=== PATIENT | female | born 1950 | race Caucasian/White ===

== ENCOUNTER 2022-05-02 19:08 | Inpatient (IN) ==
[2022-05-02] MEDS ORDERED: MoRPHine SULFATE 4 MG/ML 1 ML CARP\\VIAL IV PRN (19:22)
[2022-05-02] MEDS ORDERED: SODIUM CHLORIDE 0.9% 1000ML 1,000 ML IV STA (19:22)
[2022-05-02] MEDS ORDERED: ONDANSETRON INJ 2 MG/ML 2 ML VIAL IV STA (19:22)
--- NOTE | 2022-05-02 19:28 | Emergency Department Note ---
Impression & Plan Hydronephrosis of left kidney, Acute left flank pain, Hematuria ED Provider Note NAME: JUN PINK AGE: 72 SEX: F : 1950 ARRIVES VIA: Walk-In INFORMANT: Patient, ED PROVIDER(S): Mark Irby DO CHIEF COMPLAINT: Flank pain HPI: Patient is a 72-year-old female who presented to the emergency department for an evaluation of flank pain. The patient describes left-sided flank pain which began a few weeks ago. She has had episodes intermittently. She does have a history of kidney stones in the past. She has been able to pass kidney stones on her own without the need for stenting. The patient states that the pain returned over the last 24 hours and she was unable to relieve the pain. She has been taking her usual pain medication and other adsu-bmo-bdryyuz medications without relief. She describes very severe sharp pain on the left side. She denies having any rash. She denies having any chest pain or difficulty breathing. She has no lower extremity pain or swelling. The patient's not been seen by her primary care physician prior to coming to the emergency department. ROS: See above HPI for pertinent positives & negatives. A total of 10 systems reviewed and were otherwise negative. PAST MEDICAL HISTORY: See Below PAST SURGICAL HISTORY: See Below FAMILY HISTORY: See Below SOCIAL HISTORY: See Below HOME MEDICATIONS: See Below ALLERGIES: See Below VITALS: See Below PHYSICAL EXAMINATION: GENERAL: Patient is awake and alert. She is very anxious appearing and appears to be uncomfortable. EYES: The conjunctivae are clear. The pupils are round and reactive. EARS, NOSE, MOUTH AND THROAT: The nose is without any evidence of any deformity. NECK: The neck is nontender and supple. RESPIRATORY: Normal respiratory effort is noted there is no evidence of wheezing rhonchi or rales CARDIOVASCULAR: Regular rate and rhythm noted there no murmurs rubs or gallops normal S1 normal S2. GASTROINTESTINAL: The abdomen is soft. Abdomen is nontender. BACK: No midline tenderness or or step-off noted range of motion in flexion extension as well as rotation no signs of muscle spasm noted MUSCULOSKELETAL/EXTREMITIES: There is no evidence of gross deformity full range of motion is noted in the hips and shoulders. SKIN: There is no obvious evidence of any rash. There are no petechiae, pallor or cyanosis noted. NEUROLOGIC: Patient is awake alert and oriented x3 strength is symmetric p atellar reflexes are 2+ bilaterally MEDICAL DECISION MAKING: The patient is a 72-year-old female who presented to the emergency department for an evaluation of flank pain. She has a history of kidney stones in the past. She had very significant pain and was found to have severe hydronephrosis on the left kidney. There is no definite ureteral calculus. This could represent some scarring at the distal ureter. I discussed patient's laboratory and radiographic studies with her. I discussed her findings including the hematuria. It is possible this represents an underlying infection. Given the patient's degree of pain and her findings on CT I do feel she may require further inpatient management. For this reason the [facility] hospitalist was notified about the patient. Triage Nursing notes reviewed. Prior medical records reviewed Vital Signs: reviewed and remarkable for elevated blood pressure. Differential diagnosis: Renal colic, UTI, appendicitis, diverticulitis, mesenteric ischemia, aortic pathology, infections, inflammatory bowel disease, PUD, biliary pathology, as well as other pathologies. ER treatment provided: See below Diagnostics interpreted by me: ECG: none Cardiac Monitoring: An order was placed for continuous cardiac monitoring. The monitor shows a rate of 92 bpm with sinus rhythm. Laboratory studies: As stated above and show below. Imaging studies: See below. Radiographic imaging was reviewed by myself Consultation(s): Dr. Walters was notified about the patient. Past Med/Surg History Medical History Kidney stones Surgical History History of knee surgery Social History Smoking Status: Former smoker Feels Safe at Home: Yes Allergies Allergies Allergy/AdvReac Type Severity Reaction Status Date / Time animal dander Allergy Unknown Verified 05/02/22 22:57 mold Allergy Unknown Verified 05/02/22 22:57 pollen extracts Allergy hay fever Verified 05/02/22 22:57 amoxicillin AdvReac Unknown Verified 05/02/22 22:56 aspirin AdvReac Unknown Verified 05/02/22 22:56 atenolol AdvReac Unknown Verified 05/02/22 22:56 bethanechol [From Urecholine] AdvReac Unknown Verified 05/02/22 22:56 calcium AdvReac caused Verified 05/02/22 22:56 kidney stones cefuroxime AdvReac Unknown Verified 05/02/22 22:56 cephalexin AdvReac Unknown Verified 05/02/22 22:56 cortisone AdvReac Unknown Verified 05/02/22 22:56 ibuprofen AdvReac Unknown Verified 05/02/22 22:56 naproxen [From Aleve] AdvReac Unknown Verified 05/02/22 22:56 NSAIDS (Non-Steroidal AdvReac Unknown Verified 05/02/22 22:56 Anti-Inflamma topiramate [From Topamax] AdvReac Unknown Verified 05/02/22 22:56 dust Allergy Unknown Uncoded 05/02/22 22:57 Home Meds Home Medications Medication Instructions Recorded Confirmed multivitamin 1 tab PO QAM 05/02/22 05/02/22 Results & Data (ED) Vital Signs Vital Signs - 24 hr 05/02/22 19:10 05/03/22 00:34 Temperature 36.4 C L Temperature Source Temporal Artery Scan Pulse Rate 92 H 82 Respiratory Rate 18 14 Respiratory Effort / Characteristics Non-Labored Spontaneous Respiratory Depth Normal Blood Pressure 185/90 H Blood Pressure Mean 121 Pulse Oximetry 97 95 Oxygen Delivery Method Room Air Room Air Sepsis Recent Fever Within 48 Hours No Sepsis New/Unexplained Change in Mental Status No Sepsis Action Taken by Nursing No Action Required Home Medications Current Medication List: was personally reviewed by me Laboratory Data Attestation: I reviewed the patient's lab results. 05/02/22 19:36 05/02/22 19:36 Lab Results 05/02/22 05/02/22 05/02/22 Range/Units 19:36 19:36 19:36 WBC 14.53 H (4.8-10.8) K/ul RBC 4.38 (3.93-5.22) M/uL Hgb 13.4 (12.0-16.0) g/dl Hct 40.4 (34.1-44.9) % MCV 92.2 (80.0-100.0) fL MCH 30.6 (25.0-34.0) pg MCHC 33.2 (32.0-36.0) g/dL RDW Std Deviation 42.8 (36.4-46.3) fL RDW Coeff of Dewayne 12.7 (11.5-14.5) % Plt Count 358 (130-400) K/uL MPV 9.2 L (9.4-12.3) fL Immature Gran % (Auto) 0.4 % Neut % (Auto) 79.0 % Lymph % (Auto) 13.7 % [place] % (Auto) 5.9 % Eos % (Auto) 0.5 % Baso % (Auto) 0.5 % Neut # (Auto) 11.48 H (1.4-6.5) K/uL Lymph # (Auto) 1.99 (1.2-3.4) K/uL [place] # (Auto) 0.86 H (0.24-0.82) K/uL Eos # (Auto) 0.07 (0-0.50) K/uL Baso # (Auto) 0.07 (0-0.2) K/uL Immature Gran # (Auto) 0.06 H (0.00-0.02) K/uL PT Cancelled INR Cancelled APTT Cancelled PTT Ratio Cancelled Sodium 141 (136-145) mmol/L Potassium 4.0 (3.5-5.1) mmol/L Chloride 107 (98-107) mmol/L Carbon Dioxide 28 (21-32) mmol/L Anion Gap 6 (3-11) BUN 27 H (6-23) mg/dl Creatinine 0.98 (0.6-1.2) mg/dl Est Cr Clr Drug Dosing 38.6 ml/min Est GFR ( Amer) 66.3 ml/min Est GFR (Non-Af Amer) 57.2 ml/min BUN/Creatinine Ratio 27.6 H (10-20) Glucose 180 H (70-99(Fasting)) mg/dl Calcium 11.8 H (8.5-10.1) mg/dl Total Bilirubin 0.4 (0.2-1.0) mg/dl AST 19 (13-39) U/L ALT 11 (7-52) U/L Alkaline Phosphatase 86 (34-104) U/L Total Protein 7.9 (6.0-8.3) gm/dl Albumin 4.2 (3.4-5.0) gm/dl Globulin 3.7 (2.5-4.0) gm/dl Albumin/Globulin Ratio 1.1 (0.9-2) Lipase 24 (11-82) U/L Urine Color Urine Appearance (Clear) Urine pH (4.5-7.5) Ur Specific [place] (1.000-1.030) Urine Protein (Negative) Urine Glucose (UA) (Negative) Urine Ketones (Negative) Urine Blood (Negative) Urine Nitrite (Negative) Urine Bilirubin (Negative) Urine Urobilinogen (Negative) Ur Leukocyte Esterase (Negative) Urine WBC (Auto) (0-5) /hpf Urine RBC (Auto) (0-4) /hpf U Hyaline Cast (Auto) (0-5) /lpf U Epithel Cells (Auto) (0-5) /lpf Urine Bacteria (Auto) (Negative) SARS-CoV-2, RNA, NAAT (NEGATIVE) 05/02/22 05/02/22 05/02/22 Range/Units 19:47 20:41 23:30 WBC (4.8-10.8) K/ul RBC (3.93-5.22) M/uL Hgb (12.0-16.0) g/dl Hct (34.1-44.9) % MCV (80.0-100.0) fL MCH (25.0-34.0) pg MCHC (32.0-36.0) g/dL RDW Std Deviation (36.4-46.3) fL RDW Coeff of Dewayne (11.5-14.5) % Plt Count (130-400) K/uL MPV (9.4-12.3) fL Immature Gran % (Auto) % Neut % (Auto) % Lymph % (Auto) % [place] % (Auto) % Eos % (Auto) % Baso % (Auto) % Neut # (Auto) (1.4-6.5) K/uL Lymph # (Auto) (1.2-3.4) K/uL [place] # (Auto) (0.24-0.82) K/uL Eos # (Auto) (0-0.50) K/uL Baso # (Auto) (0-0.2) K/uL Immature Gran # (Auto) (0.00-0.02) K/uL PT 10.3 INR 1.0 APTT 27.7 PTT Ratio 1.0 Sodium (136-145) mmol/L Potassium (3.5-5.1) mmol/L Chloride (98-107) mmol/L Carbon Dioxide (21-32) mmol/L Anion Gap (3-11) BUN (6-23) mg/dl Creatinine (0.6-1.2) mg/dl Est Cr Clr Drug Dosing ml/min Est GFR ( Amer) ml/min Est GFR (Non-Af Amer) ml/min BUN/Creatinine Ratio (10-20) Glucose (70-99(Fasting)) mg/dl Calcium (8.5-10.1) mg/dl Total Bilirubin (0.2-1.0) mg/dl AST (13-39) U/L ALT (7-52) U/L Alkaline Phosphatase (34-104) U/L Total Protein (6.0-8.3) gm/dl Albumin (3.4-5.0) gm/dl Globulin (2.5-4.0) gm/dl Albumin/Globulin Ratio (0.9-2) Lipase (11-82) U/L Urine Color Yellow Urine Appearance Cloudy A (Clear) Urine pH 5.5 (4.5-7.5) Ur Specific [place] 1.019 (1.000-1.030) Urine Protein Negative (Negative) Urine Glucose (UA) Negative (Negative) Urine Ketones Trace H (Negative) Urine Blood 3+ H (Negative) Urine Nitrite Negative (Negative) Urine Bilirubin Negative (Negative) Urine Urobilinogen Negative (Negative) Ur Leukocyte Esterase 1+ H (Negative) Urine WBC (Auto) 10-30 H (0-5) /hpf Urine RBC (Auto) >30 H (0-4) /hpf U Hyaline Cast (Auto) 1-5 (0-5) /lpf U Epithel Cells (Auto) 20-30 H (0-5) /lpf Urine Bacteria (Auto) Negative (Negative) SARS-CoV-2, RNA, NAAT NEGATIVE (NEGATIVE) Administered Medications Hydromorphone HCl (Hydromorphone Inj 0.5 Mg/0.5 Ml Syr) 0.5 mg IV Q15M PRN PRN Reason: Pain Stop: 05/16/22 19:25 Last Admin: 05/02/22 21:25 Dose: 0.5 mg Documented By: [id number] Admin: 05/02/22 20:47 Dose: 0.5 mg Documented By: [id number] Admin: 05/02/22 19:39 Dose: 0.5 mg Documented By: [id number] Discontinued Medications Sodium Chloride (Nss 1000ml) 1,000 mls @ 999 mls/hr IV .Q1H1M STA Stop: 05/02/22 20:22 Last Infusion: 05/02/22 22:12 Dose: 0 mls/hr Documented By: [id number] Admin: 05/02/22 19:39 Dose: 999 mls/hr Documented By: [id number] Ceftriaxone Sodium (Rocephin) 2,000 mg in 70 mls @ 140 mls/hr IV NOW STA Stop: 05/02/22 23:04 Last Admin: 05/02/22 23:03 Dose: Not Given Documented By: [id number] Ondansetron HCl (Ondansetron Inj 2 Mg/Ml 2 Ml Vial) 4 mg IV NOW STA Stop: 05/02/22 19:23 Last Admin: 05/02/22 19:39 Dose: 4 mg Documented By: [id number] Imaging Data Radiologist's Impression: Patient: JUN PINK (Female) : 48 Status: ER Date: 05/02/22 20:24 Room #: History: left flank pain appen pres Slices: [id number] Priors: Tech: Primitivo Warren @ [phone] Exams: CT ABDOMEN & PELVIS Without Contrast Contrast: Accession Numbers: [id number] Referring Physician: REFERRED SELF Preliminary Findings Only See Final Report For Complete Findings CT ABDOMEN & PELVIS Without Contrast: Marked left hydronephrosis. There is significant narrowing at the left UPJ without hydroureteronephrosis. Findings may represent left UPJ stricture. No renal, ureteral, or bladder calculi identified on this exam. Remaining solid abdominal organs are unremarkable in appearance. Gastrointestinal tract is within normal limits without free air or obstruction. Calcified fibroid uterus. Radiologist: Cam Hardin MD Study ready at 20:25 and initial results transmitted at 20:45 Discharge Plan Visit Data Chief Complaint: Flank Pain Stated Complaint: LEFT FLANK PAIN ED Provider: Mark Irby Discharge Problem: Hydronephrosis of left kidney, Acute left flank pain, Hematuria Patient Disposition: Being Evaluated by Hospitalist Forms Stand Alone Forms: [employer] Prescriptions Prescriptions: No Action multivitamin Tablet 1 tab PO QAM Referrals Referrals: Jacquie Owen [Primary Care Provider] - : Hematuria Qualifiers: Hematuria type: unspecified type Qualified Code(s): R31.9 - Hematuria, unspecified
[2022-05-02] MEDS: HYDROmorphone INJ 0.5 MG/0.5 ML SYR IV PRN ×3 (19:39→21:25)
[2022-05-02 19:46] LABS: Basophils # (auto) 0.07 K/uL (0-0.2); Basophils % (auto) 0.5 %; Eosinophils # (auto) 0.07 K/uL (0-0.50); Eosinophils % (auto) 0.5 %; Hematocrit (blood only) 40.4 % (34.1-44.9); Hemoglobin 13.4 g/dl (12.0-16.0); Immature Granulocytes # (auto) 0.06 K/uL (0.00-0.02); Immature Granulocytes % (auto) 0.4 %; Lymphocytes # (auto) 1.99 K/uL (1.2-3.4); Lymphocytes % (auto) 13.7 %; Mean Corpuscular Hemoglobin 30.6 pg (25.0-34.0); Mean Corpuscular Hgb Conc 33.2 g/dL (32.0-36.0); Mean Corpuscular Volume 92.2 fL (80.0-100.0); Mean Platelet Volume 9.2 fL (9.4-12.3); Monocytes # (auto) 0.86 K/uL (0.24-0.82); Monocytes % (auto) 5.9 %; Neutrophils # (auto) 11.48 K/uL (1.4-6.5); Platelet Count 358 K/uL (130-400); RDW Coefficient of Variation 12.7 % (11.5-14.5); RDW Standard Deviation 42.8 fL (36.4-46.3); Red Blood Count 4.38 M/uL (3.93-5.22); White Blood Count 14.53 K/ul (4.8-10.8)
[2022-05-02 20:03] LABS: Appearance Urine Cloudy (Clear); Bacteria Urine Automated Negative (Negative); Bilirubin Urine Negative (Negative); Blood Urine 3+ (Negative); Color Urine Yellow; Epithelial Cell Urine Auto 20-30 /lpf (0-5); Glucose Urine UA Negative (Negative); Ketones Urine Trace (Negative); Leukocyte Esterase Urine 1+ (Negative); Nitrite Urine Negative (Negative); Protein Urine Negative (Negative); RBC Urine Automated >30 /hpf (0-4); Specific Gravity Urine 1.019 (1.000-1.030); Urobilinogen Urine Negative (Negative); pH Urine 5.5 (4.5-7.5)
[2022-05-02 20:09] LABS: Albumin Globulin Ratio 1.1 (0.9-2); Albumin Level 4.2 gm/dl (3.4-5.0); BUN Creatinine Ratio 27.6 (10-20); Bilirubin,Total 0.4 mg/dl (0.2-1.0); Calcium 11.8 mg/dl (8.5-10.1); Creatinine Clr Calc Pharmacy 38.6 ml/min; Est GFR (African American) 66.3 ml/min; Est GFR (Non-African American) 57.2 ml/min; Globulin 3.7 gm/dl (2.5-4.0); Total Protein 7.9 gm/dl (6.0-8.3)
[2022-05-02 21:02] LABS: Partial Thromboplastin Time 27.7 Seconds (21.0-31.0); Prothrombin Time 10.3 Seconds (9.0-12.0)
[2022-05-02] MEDS ORDERED: cefTRIAXone SODIUM 2,000 MG/70 ML BAG IV STA (22:35)
--- NOTE | 2022-05-02 23:19 | History & Physical Report ---
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 every 6 hours as needed mild pain or fever Dilaudid 0.25 mg IV every 3 hours as needed moderate pain Dilaudid 0.5 mg IV every 3 hours as needed for severe pain Zofran 4 mg IV every 6 hours as needed NSS + KCl 20 mEq at 60 mils per hour Patient prefers no antibiotics as she has multiple allergies and sensitivities to medications Follow urine culture and sensitivity Consult urology Hyperglycemia- Glucose 180 on admission labs Check hemoglobin A1c No history of diabetes mellitus Hypercalcemia- Calcium 11.8 upon admission Creatinine normal at 0.98 Check 25-hydroxy vitamin D and PTH levels Repeat BMP in a.m. after IV fluids Additional work-up as needed History of Present Illness Chief Complaint: The patient presents to the emergency department due to her fourth and worst episode of left-sided flank pain, nausea and vomiting since April 07, with this being the first time she came to the emergency department Primary Care Provider: Jacquie Owen The patient is a 72-year-old female with a past medical history including recurrent left flank pain, hematuria and multiple allergy and drug reactions. She reports that this is her fourth episode of left flank pain with nausea and vomiting more severe this time, since initial onset on April 07. She denies any change in oral intake, he denies any recent travels or exposures to illness. CT scan of abdomen and pelvis without contrast in the emergency department shows the following: Left hydronephrosis, left UPJ narrowing with question of stricture. In the ED the patient received the following: Normal saline 1 L, morphine sulfate 4 mg IV x2, Zofran 4 mg IV x1, and Dilaudid 0.5 mg IV x1 Allergies Allergy/AdvReac Type Severity Reaction Status Date / Time animal dander Allergy Unknown Verified 05/02/22 22:57 mold Allergy Unknown Verified 05/02/22 22:57 pollen extracts Allergy hay fever Verified 05/02/22 22:57 amoxicillin AdvReac Unknown Verified 05/02/22 22:56 aspirin AdvReac Unknown Verified 05/02/22 22:56 atenolol AdvReac Unknown Verified 05/02/22 22:56 bethanechol [From Urecholine] AdvReac Unknown Verified 05/02/22 22:56 calcium AdvReac caused Verified 05/02/22 22:56 kidney stones cefuroxime AdvReac Unknown Verified 05/02/22 22:56 cephalexin AdvReac Unknown Verified 05/02/22 22:56 cortisone AdvReac Unknown Verified 05/02/22 22:56 ibuprofen AdvReac Unknown Verified 05/02/22 22:56 naproxen [From Aleve] AdvReac Unknown Verified 05/02/22 22:56 NSAIDS (Non-Steroidal AdvReac Unknown Verified 05/02/22 22:56 Anti-Inflamma topiramate [From Topamax] AdvReac Unknown Verified 05/02/22 22:56 dust Allergy Unknown Uncoded 05/02/22 22:57 Home Medications Medication Instructions Recorded Confirmed Type multivitamin 1 tab PO QAM 05/02/22 05/02/22 History Past Med/Surg History Medical History (Updated 05/03/22 @ 01:49 by Jermaine Walters MD) Kidney stones Surgical History History of knee surgery Social History Smoking Status: Former smoker Feels Safe at Home: Yes Review of Systems Review of Systems: The patient denies chest pain, palpitations, shortness of breath, dyspnea on exertion, cough, lower extremity swelling, sore throat, fevers, chills, sweats, diarrhea , constipation, abdominal pain, pelvic pain, blood in stool, dysuria, urinary frequency or urgency, lightheadedness, dizziness, headache, memory loss, loss of consciousness, rash, imbalance, focal or generalized weakness, numbness or tingling in arms or legs, generalized arthralgias or myalgias, neck pain, or night sweats. The review of systems is otherwise negative other than for that already noted above, and at least 10 systems have been reviewed. Physical Exam Physical Exam: The patient is awake, alert and oriented 3, well developed and well nourished, normocephalic and atraumatic, lying in bed and in no acute distress. HEENT--PERRL, EOMI, mucous membranes and oropharynx dry. Neck--supple. No JVD. No bruits. Thyroid normal, trachea midline, no adenopathy. Heart--normal S1 and S2. No murmurs, rubs or gallops. Lungs--clear bilaterally, no respiratory distress, no accessory muscle use. Abdomen--normal bowel sounds and soft. Nontender. Nondistended, no hernias or masses, no organomegaly. Extremities--no cyanosis or clubbing. No edema. There are good distal pulses b/l . Dermatologic--normal skin turgor, normal color, no abnormal lymph nodes, no rash. Neurologic--cranial nerves II through XII grossly intact. Rheumatologic--normal range of motion. Psychiatric--normal affect. Results & Data Results & Data ([facility]) Vital Signs (Past 12 Hours) Vital Signs Temp Pulse Resp BP Pulse Ox O2 Del Method 05/02/22 19:10 36.4 C L 92 H 18 185/90 H 97 Room Air Laboratory Results Laboratory Results WBC 14.53 K/ul (4.8-10.8) H 05/02/22 19:36 RBC 4.38 M/uL (3.93-5.22) 05/02/22 19:36 Hgb 13.4 g/dl (12.0-16.0) 05/02/22 19:36 Hct 40.4 % (34.1-44.9) 05/02/22 19:36 MCV 92.2 fL (80.0-100.0) 05/02/22 19:36 MCH 30.6 pg (25.0-34.0) 05/02/22 19:36 MCHC 33.2 g/dL (32.0-36.0) 05/02/22 19:36 RDW Std Deviation 42.8 fL (36.4-46.3) 05/02/22 19:36 RDW Coeff of Dewayne 12.7 % (11.5-14.5) 05/02/22 19:36 Plt Count 358 K/uL (130-400) 05/02/22 19:36 MPV 9.2 fL (9.4-12.3) L 05/02/22 19:36 Immature Gran % (Auto) 0.4 % 05/02/22 19:36 Neut % (Auto) 79.0 % 05/02/22 19:36 Lymph % (Auto) 13.7 % 05/02/22 19:36 Garza % (Auto) 5.9 % 05/02/22 19:36 Eos % (Auto) 0.5 % 05/02/22 19:36 Baso % (Auto) 0.5 % 05/02/22 19:36 Neut # (Auto) 11.48 K/uL (1.4-6.5) H 05/02/22 19:36 Lymph # (Auto) 1.99 K/uL (1.2-3.4) 05/02/22 19:36 Garza # (Auto) 0.86 K/uL (0.24-0.82) H 05/02/22 19:36 Eos # (Auto) 0.07 K/uL (0-0.50) 05/02/22 19:36 Baso # (Auto) 0.07 K/uL (0-0.2) 05/02/22 19:36 Immature Gran # (Auto) 0.06 K/uL (0.00-0.02) H 05/02/22 19:36 PT 10.3 Seconds (9.0-12.0) 05/02/22 20:41 INR 1.0 (0.9-1.1) 05/02/22 20:41 APTT 27.7 Seconds (21.0-31.0) 05/02/22 20:41 PTT Ratio 1.0 05/02/22 20:41 Sodium 141 mmol/L (136-145) 05/02/22 19:36 Potassium 4.0 mmol/L (3.5-5.1) 05/02/22 19:36 Chloride 107 mmol/L (98-107) 05/02/22 19:36 Carbon Dioxide 28 mmol/L (21-32) 05/02/22 19:36 Anion Gap 6 (3-11) 05/02/22 19:36 BUN 27 mg/dl (6-23) H 05/02/22 19:36 Creatinine 0.98 mg/dl (0.6-1.2) 05/02/22 19:36 Est Cr Clr Drug Dosing 38.6 ml/min 05/02/22 19:36 Est GFR ( Amer) 66.3 ml/min 05/02/22 19:36 Est GFR (Non-Af Amer) 57.2 ml/min 05/02/22 19:36 BUN/Creatinine Ratio 27.6 (10-20) H 05/02/22 19:36 Glucose 180 mg/dl (70-99(Fasting)) H 05/02/22 19:36 Calcium 11.8 mg/dl (8.5-10.1) H 05/02/22 19:36 Total Bilirubin 0.4 mg/dl (0.2-1.0) 05/02/22 19:36 AST 19 U/L (13-39) 05/02/22 19:36 ALT 11 U/L (7-52) 05/02/22 19:36 Alkaline Phosphatase 86 U/L (34-104) 05/02/22 19:36 Total Protein 7.9 gm/dl (6.0-8.3) 05/02/22 19:36 Albumin 4.2 gm/dl (3.4-5.0) 05/02/22 19:36 Globulin 3.7 gm/dl (2.5-4.0) 05/02/22 19:36 Albumin/Globulin Ratio 1.1 (0.9-2) 05/02/22 19:36 Lipase 24 U/L (11-82) 05/02/22 19:36 Urine Color Yellow 05/02/22 19:47 Urine Appearance Cloudy (Clear) A 05/02/22 19:47 Urine pH 5.5 (4.5-7.5) 05/02/22 19:47 Ur Specific [place] 1.019 (1.000-1.030) 05/02/22 19:47 Urine Protein Negative (Negative) 05/02/22 19:47 Urine Glucose (UA) Negative (Negative) 05/02/22 19:47 Urine Ketones Trace (Negative) H 05/02/22 19:47 Urine Blood 3+ (Negative) H 05/02/22 19:47 Urine Nitrite Negative (Negative) 05/02/22 19:47 Urine Bilirubin Negative (Negative) 05/02/22 19:47 Urine Urobilinogen Negative (Negative) 05/02/22 19:47 Ur Leukocyte Esterase 1+ (Negative) H 05/02/22 19:47 Urine WBC (Auto) 10-30 /hpf (0-5) H 05/02/22 19:47 Urine RBC (Auto) >30 /hpf (0-4) H 05/02/22 19:47 U Hyaline Cast (Auto) 1-5 /lpf (0-5) 05/02/22 19:47 U Epithel Cells (Auto) 20-30 /lpf (0-5) H 05/02/22 19:47 Urine Bacteria (Auto) Negative (Negative) 05/02/22 19:47 SARS-CoV-2, RNA, NAAT NEGATIVE (NEGATIVE) 05/02/22 23:30 Code Status & VTE Plan Code Status Full code VTE Prophylaxis Plan VTE Prophylaxis will be ordered: Yes PG Care Time/CCT Total # of Minutes Spent Total Time Spent with Patient: Total time spent is greater than 50% in coordination of care (as documented) at patient's floor/unit and/or counseling patient: Coding Level of Care Code 93306 INT INP/OBS CARE 3/75MIN Diagnoses Hydronephrosis of left kidney N13.30 Acute left flank pain R10.9 Hematuria R31.9 Hematuria type: unspecified type Obstruction of left ureteropelvic junction (UPJ) N13.5 Acquired ureteropelvic junction (UPJ) stricture N13.5 Hyperglycemia R73.9 Kidney stones N20.0 (1) Hematuria Hematuria type: unspecified type Qualified Code(s): R31.9 - Hematuria, unspecified
[2022-05-03] MEDS ORDERED: ACETAMINOPHEN 325 MG TAB PO PRN (02:01)
[2022-05-03] MEDS ORDERED: HYDROmorphone INJ 0.5 MG/0.5 ML SYR IV PRN (02:01)
[2022-05-03] MEDS ORDERED: ONDANSETRON INJ 2 MG/ML 2 ML VIAL IV PRN ×2 (02:01→09:59)
[2022-05-03] MEDS ORDERED: HYDROmorphone INJ 0.5 MG/0.5 ML SYR ONE (02:22)
[2022-05-03] MEDS ORDERED: ACETAMINOPHEN 1,000 MG/100 ML VIAL IV STA (02:56)
[2022-05-03] MEDS: NSS + 20MEQ KCL 20 MEQ/1,000 ML BAG IV SCH ×2 (03:16→19:46)
[2022-05-03 06:20] LABS: Basophils # (auto) 0.04 K/uL (0-0.2); Basophils % (auto) 0.3 %; Eosinophils # (auto) 0.02 K/uL (0-0.50); Eosinophils % (auto) 0.1 %; Hematocrit (blood only) 36.8 % (34.1-44.9); Immature Granulocytes # (auto) 0.04 K/uL (0.00-0.02); Immature Granulocytes % (auto) 0.3 %; Lymphocytes # (auto) 1.39 K/uL (1.2-3.4); Lymphocytes % (auto) 9.8 %; Mean Corpuscular Hgb Conc 32.6 g/dL (32.0-36.0); Mean Platelet Volume 9.1 fL (9.4-12.3); Monocytes # (auto) 1.08 K/uL (0.24-0.82); Monocytes % (auto) 7.6 %; Neutrophils # (auto) 11.55 K/uL (1.4-6.5); Neutrophils % (auto) 81.9 %; Platelet Count 293 K/uL (130-400); RDW Coefficient of Variation 12.9 % (11.5-14.5); RDW Standard Deviation 43.3 fL (36.4-46.3); White Blood Count 14.12 K/ul (4.8-10.8)
[2022-05-03 06:46] LABS: Albumin Level 3.6 gm/dl (3.4-5.0); BUN Creatinine Ratio 28.7 (10-20); Calcium 10.1 mg/dl (8.5-10.1); Creatinine Clr Calc Pharmacy 37.4 ml/min; Est GFR (Non-African American) 55.2 ml/min; Phosphorus 2.9 mg/dl (2.5-4.9); Potassium 4.6 mmol/L (3.5-5.1)
[2022-05-03 06:50] LABS: Estimated Average Glucose 123 mg/dl; Hemoglobin A1C 5.9 % (4.5-5.6)
--- NOTE | 2022-05-03 07:33 | Hospitalist Progress Note ---
Date of Service May 03, 2022 Assessment & Plan (1) Acquired ureteropelvic junction (UPJ) stricture: Plan: Acute left flank pain fourth episode/acquired UPJ stricture with obstruction/marked left hydronephrosis/history of right-sided kidney stones- -Received the following from the ED: Normal saline 1 L, morphine sulfate 4 mg IV x2 without relief, Dilaudid 0.5 mg IV x1 with relief, Zofran 4 mg IV x1 -Acetaminophen 650 mg p.o. every 6 hours as needed mild pain or fever -Dilaudid 0.25 mg IV every 3 hours as needed moderate pain -Dilaudid 0.5 mg IV every 3 hours as needed for severe pain -Zofran 4 mg IV every 6 hours as needed -NSS + KCl 20 mEq at 60 mils per hour -Patient prefers no antibiotics as she has multiple allergies and sensitivities to medications -Follow urine culture and sensitivity -Consult urology: stent placed 05/03 maintain left stent for approx 2 weeks, f/u discuss options for ureteroscopy and further assessment with possible dilation, endopyelotomy, and/or biopsy and fulguration. Hyperglycemia- -Glucose 180 on admission labs -Check hemoglobin A1c -No history of diabetes mellitus Hypercalcemia- -Calcium 11.8 upon admission -Creatinine normal at 0.98 -25-hydroxy vitamin D low 22.8 -PTH levels high 273 -will need outpatient follow up and evaluation for possible primary hyperparathyroidism (2) Acute left flank pain: Admission and Anticipated Discharge Date Admission Date: May 02, 2022 Supervising Physician Co-Signing Physician Notes Resident Physician Supervision Note: I independently interviewed and examined the patient and verified the fuller history and physical, reviewed labs and image studies and agree with resident findings and care plan. Subjective Patient seen at bedside, calm comfortable cooperative. She states her flank pain post urology stent procedure is gone, currently feels some abdominal tenderness/bloating, like she needs to be burped. PAtient states she has urinated twice post procedure, bloody urine slowly clearing. She has not heard back from Urology regarding discharge yet. She has many unknown reactions to antibiotics. Review of Systems Review of Systems: All systems reviewed & are unremarkable except as noted in HPI & below Physical Exam Constitutional: WD/WN, vitals as above Eyes: PERRL, conjunctivae normal, anicteric sclerae ENMT: external ear and nose normal, oropharynx normal Neck: trachea midline, no thyromegaly Respiratory: normal respiratory effort Gastrointestinal (Abdomen): Inspection/Auscultation: abdomen normal to inspection Percussion/Palpation: + abdomen tender Skin: no rashes, warm and dry Results & Data Results & Data ([facility]) Vital Signs (Past 12 Hours) Vital Signs Temp Pulse Pulse Resp BP Pulse Ox O2 Del Method 05/03/22 02:38 Room Air 05/03/22 02:01 36.5 C 77 20 161/80 H 94 Room Air 05/03/22 01:30 124/74 91 Room Air 05/03/22 00:37 82 18 122/74 91 Room Air 05/03/22 00:34 82 14 95 Room Air Resident Activity Tracking Resident Involvement: Resident Care Provided Care Provided: Adult Hospital Medicine
[2022-05-03] MEDS: HYDROmorphone INJ 0.5 MG/0.5 ML SYR IV PRN ×2 (07:44→17:15)
--- NOTE | 2022-05-03 08:50 | CT Scan Report ---
CT OF THE ABDOMEN AND PELVIS WITHOUT CONTRAST CLINICAL HISTORY: Left flank pain. COMPARISON STUDY: No previous studies for comparison. TECHNIQUE: Axial images of the abdomen and pelvis were obtained without IV contrast. Images were revi ewed in the axial, sagittal, and coronal planes. Automated exposure control was utilized for the emery dy. A dose lowering technique was utilized adhering to the principles of ALARA. FINDINGS: Lung bases are unremarkable. There is severe left hydronephrosis with mild perinephric stra nding. Caliber of the left ureter is normal. There are no renal, ureteral or bladder calculi. Evaluat ion of the remainder of the abdomen and pelvis is suboptimal on this unenhanced exam. Suspected later al segment hepatic cysts are present. The spleen, adrenal glands, right kidney and pancreas are mic l. There is no right hydronephrosis. There is no evidence for a bowel obstruction. Moderate amount st ool within the colon is noted. Sigmoid diverticulosis without evidence for acute diverticulitis. Ther e may be a pedunculated fundal fibroid. A few small calcified fibroids are present. There is no lymph adenopathy or ascites. There are no acute fracture. IMPRESSION: Severe left hydronephrosis. No urinary calculi. The etiology for this dilatation is not clearly identified on the CT but favors a UPJ type obstruction with superimposed acute component give n mild left perinephric stranding. Nonemergent Urology consultation is recommended. ACT 112: Negative or not required by law. Electronically signed by: Rashawn Fisher M.D. 05/03/2022 8:48 AM
--- NOTE | 2022-05-03 09:19 | Urology Consultation ---
Date of Consultation May 03, 2022 Assessment & Plan (1) Obstruction of left ureteropelvic junction (UPJ): (2) Hydronephrosis of left kidney: (3) Acute left flank pain: Plan 72yo/F admitted with intractable left-sided flank pain with associated nausea vomiting. CT abdomen pelvis demonstrated severe left-sided hydronephrosis, favoring UPJ type obstruction. -Continues to have significant left-sided pain this morning. -She is afebrile and hemodynamically stable. -Labs reveal a leukocytosis of 14.12 and normal renal function. -Urine culture is pending. -Plan reviewed with Dr. Barr, on-call urologist. -Given her intractable left-sided pain and CT findings, will plan to proceed to OR today for cystoscopy, bilateral retrograde pyelogram, ureteral stent placement with Dr. Barr depending on findings. -Risks and benefits to be reviewed with patient by Dr. Barr. OR notified. COVID test negative. Will cover with IV ciprofloxacin. -Keep NPO. -Urology will follow. ATTENDING NOTE: Independently interviewed, assessed, and examined. Agree with above. Patient with mild elevated white count and significant pain. Does have history of stones. NO major family history of Malignancy. Pain continues to be severe and bothersome. No fevers. No chills. Increasing discomfort. Imaging reviewed and interpreted by myself. Significant left sided hydronephrosis. No obvious stone. Risks and benefits discussed at length for procedure. These include bleeding, infection, injury to surrounding tissues or organs, and risks associated with anesthesia. Patient states understanding and agrees to proceed. Will sign consent and proceed. Plan for cystoscopy with bilateral retrograde pyelogram and possible stent. History of Present Illness Attending Physician: Tanja Felder MD History of Present Illness 72-year-old female with a past medical history including kidney stones, hematuria, and multiple allergy and drug reactions admitted with intractable left flank pain with associated nausea/vomiting. CT abdomen pelvis demonstrated severe left-sided hydronephrosis, favoring a UPJ type obstruction. In the ED, she was afebrile and hemodynamically stable. White count of 14.53 and normal creatinine. Urinalysis with 3+ blood, 1+ LE, negative nitrate, negative bacteria, 1030 WBC, >30 RBC, 2030 epithelial cells. Urine culture is pending. COVID test negative. She was given IVF, analgesics, and antiemetics. Patient admitted to medicine for further management. She reports that this is her fourth episode of left flank pain with nausea and vomiting more severe this time, since initial onset on April 07. She does note chills with first episode of pain. Denies fevers. Denies hematuria or dysuria. Voiding without issue. Feels she is emptying her bladder well. Reports a history of stones, previously followed with a urologist in [place]. Reports a history of hematuria with prior negative work-up in 2019. Moved to the area approximately 1 year ago. Has not establish care with a urologist yet in the area. Family history noncontributory. CT abdomen pelvis- Severe left hydronephrosis. No urinary calculi. The etiology for this dilatation is not clearly identified on the CT but favors a UPJ type obstruction with superimposed acute component given mild left perinephric stranding. Nonemergent Urology consultation is recommended. Allergies Allergy/AdvReac Type Severity Reaction Status Date / Time animal dander Allergy Unknown Verified 05/02/22 22:57 house dust Allergy Unknown Verified 05/03/22 02:16 mold Allergy Unknown Verified 05/02/22 22:57 pollen extracts Allergy hay fever Verified 05/02/22 22:57 amoxicillin AdvReac Unknown Verified 05/02/22 22:56 aspirin AdvReac Unknown Verified 05/02/22 22:56 atenolol AdvReac Unknown Verified 05/02/22 22:56 bethanechol [From Urecholine] AdvReac Unknown Verified 05/02/22 22:56 calcium AdvReac caused Verified 05/02/22 22:56 kidney stones cefuroxime AdvReac Unknown Verified 05/02/22 22:56 cephalexin AdvReac Unknown Verified 05/02/22 22:56 cortisone AdvReac Unknown Verified 05/02/22 22:56 ibuprofen AdvReac Unknown Verified 05/02/22 22:56 naproxen [From Aleve] AdvReac Unknown Verified 05/02/22 22:56 NSAIDS (Non-Steroidal AdvReac Unknown Verified 05/02/22 22:56 Anti-Inflamma topiramate [From Topamax] AdvReac Unknown Verified 05/02/22 22:56 Home Medications Medication Instructions Recorded Confirmed Type multivitamin 1 tab PO QAM 05/02/22 05/02/22 History Patient History Medical History (Updated 05/03/22 @ 01:49 by Jermaine Walters MD) Kidney stones Surgical History History of knee surgery Social History Smoking Status: Former smoker Second Hand Exposure: No; Hx Alcohol Use: Yes Alcohol type: beer Hx Substance Use: No Preferred Language: French Communication Ability: Effective Intermission Coordinator Required: No Beliefs That Will Affect Care: None Current Living Situation: Spouse Feels Safe at Home: Yes Assistive Devices: Crutches and Glasses Review of Systems Review of Systems: All systems reviewed & are unremarkable except as noted in HPI & below Physical Exam Constitutional: cooperative; no acute distress Eyes: PERRL, conjunctivae normal, anicteric sclerae ENMT: external ear and nose normal, oropharynx normal Neck: normal visual inspection Respiratory: normal respiratory effort; no respiratory distress and no labored breathing Musculoskeletal: Head/Neck/Chest: normocephalic Skin: No visible rashes or lesions to exposed skin areas Neurologic: awake Psychiatric: A+Ox3, euthymic affect Genitourinary: + CVA tenderness (Left sided tenderness with palpation) Results & Data ([facility]) Vital Signs (Past 12 Hours) Vital Signs Temp Pulse Pulse Pulse Resp BP BP 05/03/22 08:05 36.5 C 63 14 126/71 05/03/22 02:38 05/03/22 02:01 36.5 C 77 20 161/80 H 05/03/22 01:30 124/74 05/03/22 00:37 82 18 122/74 05/03/22 00:34 82 14 Pulse Ox O2 Del Method 05/03/22 08:05 96 Room Air 05/03/22 02:38 Room Air 05/03/22 02:01 94 Room Air 05/03/22 01:30 91 Room Air 05/03/22 00:37 91 Room Air 05/03/22 00:34 95 Room Air PG Care Time/CCT Total # of Minutes Spent Total Time Spent with Patient: Total time spent is greater than 50% in coordination of care (as documented) at patient's floor/unit and/or counseling patient: Coding Level of Care Code 18048 INT INP/OBS CARE 2/55MIN Diagnoses Obstruction of left ureteropelvic junction (UPJ) N13.5 Hydronephrosis of left kidney N13.30 Acute left flank pain R10.9
[2022-05-03] MEDS ORDERED: CIPROFLOXACIN 400MG / 200ML D5W IV ONE (09:29)
--- NOTE | 2022-05-03 09:51 | Anesthesiology Consultation ---
Date of Service May 03, 2022 Assessment & Plan Chart Review Chart Review: Acceptable Risk for Surgery and Patient NOT seen in Pre Admission Testing Consults Requested none ASA ASA3 Proposed Anesthesia Anesthesia Type: MAC History Surgery Operation Date: 05/03/22 12:20 Proposed Procedures p Cystoscopy, Bilateral Retrograde Pyelogram, Possible Stent Placement - Joseph Barr, DO Height/Weight Height: 5 ft 1 in Weight: 52.4 kg Allergies Allergy/AdvReac Type Severity Reaction Status Date / Time animal dander Allergy Unknown Verified 05/02/22 22:57 house dust Allergy Unknown Verified 05/03/22 02:16 mold Allergy Unknown Verified 05/02/22 22:57 pollen extracts Allergy hay fever Verified 05/02/22 22:57 amoxicillin AdvReac Unknown Verified 05/02/22 22:56 aspirin AdvReac Unknown Verified 05/02/22 22:56 atenolol AdvReac Unknown Verified 05/02/22 22:56 bethanechol [From Urecholine] AdvReac Unknown Verified 05/02/22 22:56 calcium AdvReac caused Verified 05/02/22 22:56 kidney stones cefuroxime AdvReac Unknown Verified 05/02/22 22:56 cephalexin AdvReac Unknown Verified 05/02/22 22:56 cortisone AdvReac Unknown Verified 05/02/22 22:56 ibuprofen AdvReac Unknown Verified 05/02/22 22:56 naproxen [From Aleve] AdvReac Unknown Verified 05/02/22 22:56 NSAIDS (Non-Steroidal AdvReac Unknown Verified 05/02/22 22:56 Anti-Inflamma topiramate [From Topamax] AdvReac Unknown Verified 05/02/22 22:56 Medications Home Medications Medication Instructions Recorded Confirmed Last Taken multivitamin 1 tab PO QAM 05/02/22 05/02/22 05/02/22 Active Medications Generic Name Dose Route Start Last Admin Trade Name Freq PRN Reason Stop Dose Admin Hydromorphone HCl 0.5 mg 05/03/22 02:01 05/03/22 07:44 Hydromorphone Inj 0.5 Mg/0.5 Ml Syr IV 05/17/22 02:00 0.5 mg Q3H PRN Administration Severe Pain Potassium Chloride/Sodium Chloride 20 meq in 1,000 mls @ 60 mls/hr 05/03/22 03:00 05/03/22 08:54 Normal Saline W/20 Meq Kcl IV 06/02/22 01:59 0 mls/hr .[id number] ZHANG Infusion Protocol NPO Date Last Intake of Fluids: 05/02/22 Time Last Intake of Fluids: 20:00 Date Last Intake of Solids: 05/02/22 Time Last Intake of Solids: 12:00 Past Medical History Medical History Kidney stones Exercise / Class Metabolic Activity II 4-5 Yardwork/Stairs/Walk up hill Past Surgical History Surgical History History of knee surgery Past Anesthesia History No Hx of Anesthesia Complications and No Family Hx of Anesthesia Complications History of PONV No Hx of PONV and No Hx of Motion Sickness Social History Smoking Status: Former smoker Smoking End Date: 1979 Hx Alcohol Use: Yes Alcohol type: beer alcohol intake frequency: holidays/special occasions only Hx Substance Use: No substance use type: does not use Physical Exam Vital Signs Last Vital Signs Temp 37.1 C 05/03/22 09:18 Pulse 73 05/03/22 09:18 Resp 18 05/03/22 09:18 BP 120/71 05/03/22 09:18 Pulse Ox 93 05/03/22 09:18 O2 Del Method 05/03/22 09:18 Testing Laboratory Results 05/03/22 06:06 05/03/22 06:06 PT 10.3 Seconds (9.0-12.0) 05/02/22 20:41 INR 1.0 (0.9-1.1) 05/02/22 20:41 APTT 27.7 Seconds (21.0-31.0) 05/02/22 20:41 Hemoglobin A1c 5.9 % (4.5-5.6) H 05/03/22 06:06 Urine Color Yellow 05/02/22 19:47 Urine Appearance Cloudy (Clear) A 05/02/22 19:47 Urine pH 5.5 (4.5-7.5) 05/02/22 19:47 Ur Specific [place] 1.019 (1.000-1.030) 05/02/22 19:47 Urine Protein Negative (Negative) 05/02/22 19:47 Urine Glucose (UA) Negative (Negative) 05/02/22 19:47 Urine Ketones Trace (Negative) H 05/02/22 19:47 Urine Nitrite Negative (Negative) 05/02/22 19:47 Ur Leukocyte Esterase 1+ (Negative) H 05/02/22 19:47 Urine WBC (Auto) 10-30 /hpf (0-5) H 05/02/22 19:47 Urine RBC (Auto) >30 /hpf (0-4) H 05/02/22 19:47 U Hyaline Cast (Auto) 1-5 /lpf (0-5) 05/02/22 19:47 U Epithel Cells (Auto) 20-30 /lpf (0-5) H 05/02/22 19:47 Urine Bacteria (Auto) Negative (Negative) 05/02/22 19:47
[2022-05-03] MEDS ORDERED: PROMETHAZINE HCL 12.5 MG in SODIUM CHLORIDE 0.9% 50 ML IV PRN (09:59)
[2022-05-03] MEDS ORDERED: fentaNYL citrate 100 MCG/2 ML VIAL IV PRN (09:59)
[2022-05-03] MEDS ORDERED: ATROPINE SULFATE 0.1 MG/ML 10ML SYR IV PRN (09:59)
[2022-05-03] MEDS ORDERED: FLUMAZENIL 0.1 MG/1 ML 10 ML VIAL IV PRN (09:59)
[2022-05-03] MEDS ORDERED: ePHEDrine sulfate 50 MG/ML AMP IV PRN (09:59)
[2022-05-03] MEDS ORDERED: NALOXONE HCL 0.4 MG/1 ML VIAL/CARP IV PRN (09:59)
[2022-05-03] MEDS ORDERED: LIDOCAINE 2% MPF LOCAL 5 ML VIAL INFIL ONE (10:16)
[2022-05-03] MEDS ORDERED: PROPOFOL IV EMULSION 10 MG/ML 20 ML VIAL IV ONE ×2 (10:16→10:51)
[2022-05-03] MEDS ORDERED: ONDANSETRON INJ 2 MG/ML 2 ML VIAL ONE ×2 (10:16→10:40)
[2022-05-03] MEDS ORDERED: MIDAZOLAM HCL 1 MG/ML 2ML VIAL ONE (10:16)
[2022-05-03] MEDS ORDERED: fentaNYL citrate 100 MCG/2 ML VIAL ONE (10:16)
[2022-05-03] MEDS: CIPROFLOXACIN / D5W 400 MG/200 ML BAG IV SCH (10:31)
--- NOTE | 2022-05-03 11:13 | Operative Report ---
PG Post Operative Report Pre & Post Diagnosis Operation Date: 05/03/22 12:20 Pre-Op Diagnosis: HYDRONEPHROSIS Post-Op Diagnosis: HYDRONEPHROSIS I identified the patient and participated in the time-out.: Yes Procedure Operation Date: 05/03/22 12:20 Actual Procedures p Cystoscopy with Bilateral Retrograde Pyelogram Left Ureteroscopy, Dilation, and Stent Placement - Joseph Barr DO Surgeon Joseph Barr, II, DO Sand Control Worker None Estimated Blood Loss 1 Findings Consistent with Post-Op Diagnosis Severe strictured area vs lesion at UPJ causing significant obstruction Specimens Left Renal Urine Cytology Left Renal Urine Culture Drains 6 Fr Multilength Anesthesia Type General Complications none Disposition Disposition: Recovery Room Indications Patient with bothersome hydronephrosis and pain in flank. History of stones. Risks and benefits discussed at length. Description of Procedure Patient was consented and brought back to the operating room. Patient was placed under anesthesia in the supine position and moved to the dorsal lithotomy position. Patient was prepped and draped in the regular sterile fashion. A time out was completed. A 30degree Cystoscope was placed into the bladder and the entire bladder was examined. The UO's were identified. The right UO was cannulized with a catheter and a retrograde pyelogram was completed. No filling defects or other issues. The Left UO was cannulized with a catheter and a retrograde pyelogram was completed. The ureter appeared to have a blind ending without appreciable contrast into the renal pelvis. A wire was then placed. A second wire was also placed with attempts to bypass the area. With some manipulation, a 5 Fr Open ended catheter was able to be advanced. Contrast then appeared to enter the collecting system. A urine for Cytology and A urine sample for culture were taken from the pelvis. A wire was advanced into the renal pelvis. Another attempt to access the renal pelvis found similar issues with advancing the catheter and wire. The second wire was still positioned in the ureter. At this point, due to concerns about being able to advance a stent, the flexible scope was then taken over the second wire and advanced to the proximal ureter. A considerable narrowing was noted. The wire appeared to cross the area and had been confirmed in the renal pelvis. A gentle dilation was completed, and the scope was able to bypass the area. Just proximal to the area of likely stricture there was consid erable edema vs lesion in the UPj region at approx 2 o'clock. There was moderate debris in the renal pelvis making visualization difficult. At this point, it was decided to drain the system and assess after patient had been cleared of any infections. Contrast was placed through the scope for a pyelogram to assist in stent placement. The entire ureter was examined as the scope was slowly removed. No obstructions or other areas of concern were noted. With the Left wire in place, a 6 Fr Double J stent was placed. It was confirmed with fluoroscopy. With the stent in place, the bladder was emptied. The scope was removed. The patient was cleaned, aroused from anesthesia, and transferred to the pacu in stable condition having tolerated the procedure well with no complications. I was present and participated in all aspects of the procedure. The patient will be monitored in the PACU until transferred. Will maintain left stent for approx 2 weeks and plan followup in office to dis cuss options for ureteroscopy and further assessment with possible dilation, endopyelotomy, and/or biopsy and fulguration. I attest to the content of the Intraoperative Record and any orders documented therein. Any exceptions are noted below.
--- NOTE | 2022-05-03 11:48 | Anesthesiology Progress Note ---
Date of Service May 03, 2022 Anesthesia Post Procedure Vital Signs Vital Signs: Temp Pulse Pulse Pulse Resp BP BP 05/03/22 11:35 36.9 C 75 16 05/03/22 11:25 76 13 05/03/22 11:15 36.3 C L 78 16 05/03/22 09:18 37.1 C 73 18 120/71 05/03/22 08:05 36.5 C 63 14 126/71 05/03/22 02:38 05/03/22 02:01 36.5 C 77 20 05/03/22 01:30 05/03/22 00:37 82 18 05/03/22 00:34 82 14 05/02/22 19:10 36.4 C L 92 H 18 185/90 H BP Pulse Ox O2 Del Method O2 Flow Rate 05/03/22 11:35 120/64 94 Room Air 05/03/22 11:25 120/65 95 Oxymask 4 05/03/22 11:15 106/61 98 Oxymask 6 05/03/22 09:18 93 Room Air 05/03/22 08:05 96 Room Air 05/03/22 02:38 Room Air 05/03/22 02:01 161/80 H 94 Room Air 05/03/22 01:30 124/74 91 Room Air 05/03/22 00:37 122/74 91 Room Air 05/03/22 00:34 95 Room Air 05/02/22 19:10 97 Room Air Pain Intensity Left Flank: Pain Intensity: 5 Left Pelvic: Pain Intensity: 6 Transfer of Care Handoff Completed per policy Notes Mental Status: alert / awake / arousable Patient Amnestic to Procedure: Yes Nausea / Vomiting: adequately controlled Pain: adequately controlled Airway Patency, RR, SpO2: stable & adequate BP & HR: stable & adequate Hydration State: stable & adequate Anesthetic Complications: no major complications apparent
--- NOTE | 2022-05-03 12:09 | Fluoroscopy Report ---
INTRAOPERATIVE RADIOGRAPHS CLINICAL HISTORY: Bilateral retrograde pyelograms and left ureteral stent placement. Fluoroscopy time: 68 seconds. FINDINGS: 12 spot fluoroscopic views of the abdomen are correlated with abdominal CT dated 05/02/2022. Initially, contrast is injected into the right ureter and the right renal collecting system. There is no right-sided hydronephrosis. No no intraluminal filling defects are clearly seen. There is tortuos ity of the right proximal ureter. Contrast was then injected into the left ureter. There is moderate left hydronephrosis. The final 2 images show the proximal and distal ends of a left ureteral stent in place. IMPRESSION: Intraoperative images from a left ureteral stent placement procedure as above. Electronically signed by: Rubén Zee M.D. 05/03/2022 12:07 PM
[2022-05-03] MEDS ORDERED: HYDROmorphone INJ 0.5 MG/0.5 ML SYR IV STA (19:39)
[2022-05-04] MEDS: CIPROFLOXACIN / D5W 400 MG/200 ML BAG IV SCH (06:02)
[2022-05-04 06:15] LABS: Basophils # (auto) 0.04 K/uL (0-0.2); Basophils % (auto) 0.3 %; Eosinophils # (auto) 0.04 K/uL (0-0.50); Eosinophils % (auto) 0.3 %; Hematocrit (blood only) 34.7 % (34.1-44.9); Hemoglobin 11.3 g/dl (12.0-16.0); Immature Granulocytes # (auto) 0.02 K/uL (0.00-0.02); Immature Granulocytes % (auto) 0.2 %; Lymphocytes # (auto) 2.83 K/uL (1.2-3.4); Lymphocytes % (auto) 23.3 %; Mean Corpuscular Hemoglobin 30.7 pg (25.0-34.0); Mean Corpuscular Hgb Conc 32.6 g/dL (32.0-36.0); Mean Corpuscular Volume 94.3 fL (80.0-100.0); Mean Platelet Volume 9.2 fL (9.4-12.3); Monocytes # (auto) 1.24 K/uL (0.24-0.82); Monocytes % (auto) 10.2 %; Neutrophils # (auto) 7.96 K/uL (1.4-6.5); Neutrophils % (auto) 65.7 %; Platelet Count 263 K/uL (130-400); RDW Standard Deviation 44.8 fL (36.4-46.3); Red Blood Count 3.68 M/uL (3.93-5.22); White Blood Count 12.13 K/ul (4.8-10.8)
[2022-05-04 06:39] LABS: Calcium 10.2 mg/dl (8.5-10.1); Creatinine Clr Calc Pharmacy 50.4 ml/min; Est GFR (African American) 91.7 ml/min; Est GFR (Non-African American) 79.1 ml/min; Magnesium 1.8 mg/dl (1.7-2.4); Potassium 4.2 mmol/L (3.5-5.1)
--- NOTE | 2022-05-04 07:23 | Discharge Summary ---
Date of Service May 04, 2022 Admission HPI Per Admitting Provider The patient is a 72-year-old female with a past medical history including recurrent left flank pain, hematuria and multiple allergy and drug reactions. She reports that this is her fourth episode of left flank pain with nausea and vomiting more severe this time, since initial onset on April 07. She denies any change in oral intake, he denies any recent travels or exposures to illness. CT scan of abdomen and pelvis without contrast in the emergency department shows the following: Left hydronephrosis, left UPJ narrowing with question of stricture. In the ED the patient received the following: Normal saline 1 L, morphine sulfate 4 mg IV x2, Zofran 4 mg IV x1, and Dilaudid 0.5 mg IV x1 Admission Exam Per Admitting Provider The patient is awake, alert and oriented 3, well developed and well nourished, normocephalic and atraumatic, lying in bed and in no acute distress. HEENT--PERRL, EOMI, mucous membranes and oropharynx dry. Neck--supple. No JVD. No bruits. Thyroid normal, trachea midline, no adenopathy. Heart--normal S1 and S2. No murmurs, rubs or gallops. Lungs--clear bilaterally, no respiratory distress, no accessory muscle use. Abdomen--normal bowel sounds and soft. Nontender. Nondistended, no hernias or masses, no organomegaly. Extremities--no cyanosis or clubbing. No edema. There are good distal pulses b/l. Dermatologic--normal skin turgor, normal color, no abnormal lymph nodes, no rash. Neurologic--cranial nerves II through XII grossly intact. Rheumatologic--normal range of motion. Psychiatric--normal affect. Principal Diagnosis L hydronephrosis with L UPJ stricture Discharge Exam Constitutional WD/WN, vitals as above Eyes PERRL, conjunctivae normal, anicteric sclerae ENMT external ear and nose normal, oropharynx normal Neck trachea midline, no thyromegaly Respiratory normal respiratory effort Cardiovascular RRR, no murmur, no edema Gastrointestinal (Abdomen) Inspection/Auscultation: abdomen normal to inspection Percussion/Palpation: abdomen soft; abdomen nontender Skin no rashes, warm and dry Discharge Data Allergies Allergy/AdvReac Type Severity Reaction Status Date / Time animal dander Allergy Unknown Verified 05/02/22 22:57 house dust Allergy Unknown Verified 05/03/22 02:16 mold Allergy Unknown Verified 05/02/22 22:57 pollen extracts Allergy hay fever Verified 05/02/22 22:57 amoxicillin AdvReac Unknown Verified 05/02/22 22:56 aspirin AdvReac Unknown Verified 05/02/22 22:56 atenolol AdvReac Unknown Verified 05/02/22 22:56 bethanechol [From Urecholine] AdvReac Unknown Verified 05/02/22 22:56 calcium AdvReac caused Verified 05/02/22 22:56 kidney stones cefuroxime AdvReac Unknown Verified 05/02/22 22:56 cephalexin AdvReac Unknown Verified 05/02/22 22:56 cortisone AdvReac Unknown Verified 05/02/22 22:56 ibuprofen AdvReac Unknown Verified 05/02/22 22:56 naproxen [From Aleve] AdvReac Unknown Verified 05/02/22 22:56 NSAIDS (Non-Steroidal AdvReac Unknown Verified 05/02/22 22:56 Anti-Inflamma topiramate [From Topamax] AdvReac Unknown Verified 05/02/22 22:56 Consultations 05/02/22 22:35 ED Decision to Admit Stat 05/03/22 07:00 Consult Urology Routine Procedures Performed Operation Date: 05/03/22 12:20 Actual Procedures p Cystoscopy, Bilateral Retrograde Pyelogram, Left Stent Placement(Not Applicable) - Joseph Barr, DO Ordered Studies 05/02/22 19:22 CT abd pelvis wo con Urgent 05/03/22 [place] retrograde includes kub Routine Hospital Course (1) Acquired ureteropelvic junction (UPJ) stricture: Acute left flank pain fourth episode/acquired UPJ stricture with obstruction/marked left hydronephrosis/history of right-sided kidney stones- -Received IVF, meds for pain control -Consulted urology: left ureteroscopy, dilation and stent placed 05/03, pain resolved maintain left stent for approx 2 weeks, f/u discuss options for ureteroscopy and further assessment with possible dilation, endopyelotomy, and/or biopsy and fulguration. -Neg urine culture, Intraop culture left kidney pending at the time of discha rge. Patient with multiple antibiotic sensitivities so none prescribed during hospital stay and discharge. -prn otc NSAID and pyridium for symptoms control. Hyperglycemia- -Glucose 180 on admission labs -hemoglobin A1c 5.9 -No history of diabetes mellitus -outpatient follow up Hypercalcemia- -Calcium 11.8 upon admission -Creatinine normal at 0.98 -25-hydroxy vitamin D low 22.8 -PTH levels high 273 -will need outpatient follow up and evaluation for possible primary hyperparathyroidism (2) Acute left flank pain: Total Time Total Time Spent Total Time Spent (In Minutes): see attending attestation Discharge Plan Discharge Items Patient Disposition: Home - Self-Care Reason For Visit: L HYDRONEPHROSIS, L UPJ STRICTURE Discharge Diagnosis: L hydronephrosis with L UPJ stricture Activity: Resume your previous activity Non-emergency contact: Primary Care Provider and Urologist Call non-emergency contact if: you have any medication questions, your symptoms worsen and your pain is concerning for you Follow-up/Referrals: Joseph Barr DO [Physician] - 05/19/22 11:00 am Jacquie Owen [Primary Care Provider] - 05/14/22 4:05 pm Diet: Regular Addtl Attending Provider Instructions: You were admitted to the hospital for hydronephrosis secondary to a stricture in your Ureter. You were seen by urology, who placed a stent through your stricture and drained the excess urine. Please follow up with urology in outpatient for future stent management. You have slightly elevated calcium levels, which put you at risk for kidney stone formation. Please discuss with your PCP for further work up of your calcium levels. A discharge summary will be sent to your primary care physician to ensure continuity of care. Please bring this discharge summary with you to your next office appointment so that your provider can review it at that time. Follow-up appointments: Make a follow-up appointment with your PCP within the next week. It is very important that you follow up with them shortly after discharge from the hospital. We have requested a follow-up appointment with your Urologist. Keep all your follow-up appointments as already scheduled. If you cannot make an appointment, notify your provider. Medications: Your medication list has been reviewed and reconciled upon discharge to ensure accuracy and continuity of care. An updated list of all your medications is included with your hospital discharge paperwork. Please review this list closely, and make note of any changes. * We sent a new medication called [med name] to your pharmacy. Take [med name] ([_]mg) [one tablet] [daily] [for _ days]. * We sent a new medication called [med name] to your pharmacy. Take [med name] ([_]mg) [one tablet] [daily] [for _ days]. Take your medications as instructed; do not skip a dose of your medicines. Make sure all of your doctors know every medicine you are taking (including ahqr-cju-tudrscc medicines, vitamins, and supplements). Call your primary care provider before taking any new medicines (including caab-xxr-brlebwq medicines, vitamins, and supplements), because some of these may interact with your current medications, or may make your symptoms worse. Tell your primary care provider if you cannot afford your medications. CONTACT YOUR PRIMARY CARE PROVIDER if you experience any of the following: Increased flank pain, pain with urination Fever, chills Difficulty following your treatment plan, or difficulty taking medications CALL 911 OR GO TO THE EMERGENCY DEPARTMENT if you experience any of the following: Sudden, severe abdominal pain or nausea/vomiting Severe chest pain, or chest pain that radiates (moves) to your jaw or arm Sudden, severe shortness of breath or difficulty breathing Thank you for allowing us to participate in your care. Addtl Car Body Inspector Provider Instructions: The urology office will contact you to arrange a follow-up visit. Please call our office at [phone] with any questions, concerns or need to reschedule appointments for any reason. We are happy to assist you. While you have a ureteral stent in place: Some discomfort is normal. Certain movements may trigger pain or a feeling that you need to urinate. You may also feel mild soreness or pressure before or during urination. These symptoms should go away a few days after the stent is removed. Your urine may be slightly pink or red. This is due to bleeding caused by minor irritation from the stent. This may happen on and off while you have the stent, it is not harmful and is to be expected. Medication to help minimize discomfort or bladder spasms, or to prevent infection may be prescribed. Take this as directed. Drink plenty of fluids to help flush out your urinary tract. When to call [facility] at [phone]: Your urine contains heavy blood clots or you are unable to urinate. You are constantly leaking urine. Fever of 101F or higher, chills, nausea, or vomiting. Your pain is not relieved with medication. The end of the stent comes out of your urethra. Pending Studies at Discharge: No Stand-Alone Forms: [facility], Smoking Cessation Medications and DC Order Prescriptions: Continued multivitamin Tablet 1 tab PO QAM Discharge Orders: Discharge Order (Routine); Ordered 05/04/22 Ordered By: Cathleen Leavitt/Other Patient Handouts: Having a Ureteral Stent, Cystoscopy Admission Data Admit Date/Time: 05/03/22 15:32 Attending Provider: Tanja Felder Admit Provider: Jermaine Walters Primary Care Provider: Jacquie Owen Other Providers: Jermaine Walters ; Romain Shankar ; Primitivo Rogers ; Chavez Devine ; Queta Mattson ; Joseph Barr ; Martha Martinez ; Gila Graf ; Norm Rao ; Nina Pena ; Gabriella Choudhury ; Erick Arango ; Reji Sanabria Other Interventions: Discharge Summary Assessment (RN) Last Done: 05/04/22 10:20 Supervising Physician Co-Signing Physician Notes Resident Physician Supervision Note: I independently interviewed and examined the patient and verified the fuller history and physical, reviewed labs and image studies and agree with resident findings and care plan. Resident Activity Tracking Resident Involvement: Resident Care Provided Care Provided: Adult Hospital Medicine
--- NOTE | 2022-05-04 07:54 | Urology Progress Note ---
Date of Service May 04, 2022 Assessment & Plan (1) Obstruction of left ureteropelvic junction (UPJ): (2) Hydronephrosis of left kidney: (3) Acute left flank pain: Plan 72yo/F admitted with intractable left-sided flank pain with associated nausea vomiting. CT abdomen pelvis demonstrated severe left-sided hydronephrosis, favoring UPJ type obstruction. -POD 1 s/p Cystoscopy with Bilateral Retrograde Pyelogram, Left Ureteroscopy, Dilation, and Stent Placement -Left flank pain has significantly improved following stent placement yesterday. -Remains afebrile and hemodynamically stable. -Creatinine normal, White count 12.13 -Urine culture prelim no growth, Intraop culture left kidney pending. -OK for discharge from perspective. -Will arrange outpatient follow-up with our service. -Recommend discharge with prn pyridium and prn pain medication for stent management. -Expected clinical course reviewed, all questions were answered. -Urology will sign-off. Please contact us with any further questions, concerns, or changes in patient status. Admission and Anticipated Discharge Date Admission Date: May 03, 2022 Subjective Patient examined at bedside this AM. Awake, resting in bed on arrival. No acute distress. Left flank pain has significantly improved following stent placement yesterday. No fevers or chills. Denies nausea or vomiting. Voiding without issue, some hematuria/dysuria as expected. Overall feeling well, eager to go home. Review of Systems Constitutional: as per Subjective / HPI Gastrointestinal: as per Subjective / HPI Genitourinary: as per Subjective / HPI Physical Exam Constitutional: well developed and well nourished; no acute distress Respiratory: normal respiratory effort; no respiratory distress and no labored breathing Musculoskeletal: Head/Neck/Chest: normocephalic Skin: No visible rashes or lesions to exposed skin areas Neurologic: awake Psychiatric: A+Ox3, euthymic affect Results & Data ([facility]) Vital Signs (Past 12 Hours) Vital Signs Temp Pulse Resp BP Pulse Ox O2 Del Method 05/04/22 07:08 36.7 C 82 16 128/74 95 Room Air 05/04/22 04:02 36.9 C 81 16 140/75 94 Room Air 05/03/22 23:42 36.9 C 78 16 121/69 93 Room Air PG Care Time/CCT Total # of Minutes Spent Total Time Spent with Patient: Total time spent is greater than 50% in coordination of care (as documented) at patient's floor/unit and/or counseling patient: Coding Level of Care Code 11151 SUB INP/OBS CARE 2/35MIN Diagnoses Obstruction of left ureteropelvic junction (UPJ) N13.5 Hydronephrosis of left kidney N13.30 Acute left flank pain R10.9
== END 2022-05-04 11:17 | disposition home or self-care (01) | DRG 661 ==
LOC: ED 19:08 → 3E 19:08 → SUATTDRO 23:11 → 3E 05-03 01:35 → SUATTDRO 05-03 15:32